=== PATIENT | female | born 1995 ===

== ENCOUNTER 2018-01-22 15:25 | Inpatient (IN) | payer BC, MEDICAID ==
[2018-01-22] MEDS ORDERED: Magnesium Sulfate 4 gm/100 ml 4 GM/100 ML BAG IVPB ONE (17:39)
[2018-01-22] MEDS ORDERED: Lactated Ringer's 1,000 ML IV SCH ×2 (17:45→18:45)
[2018-01-22] MEDS ORDERED: Lactated Ringer's 1,000 ML IV ONE (17:46)
[2018-01-22 18:03] LABS: BASO # 0.1 K/uL (0.0-0.2); EOS % 0.6 % (0.0-4.0); HEMOGLOBIN 11.9 g/dL (11.0-16.0); LYMPH % 26.2 % (20.0-40.0); MEAN CELL VOLUME 89.8 fL (81.0-99.0); MEAN CORPUSCULAR HGB CONC 33.4 g/dL (33.0-37.0); MONO # 0.8 K/uL (0.0-0.8); MONO % 10.8 % (0.0-10.0); NEUT # 4.7 K/uL (1.8-7.0); NEUT % 61.4 % (50.0-75.0); NRBC % 0.1 % (0.0-2.0); RBC 3.96 Mil/uL (3.80-5.20); RED CELL DISTRIBUTION WIDTH 14.8 % (11.5-14.5); WHITE BLOOD COUNT 7.6 K/uL (4.8-10.8)
[2018-01-22 18:13] LABS: URIC ACID 5.6 mg/dL (2.2-7.5)
[2018-01-22 18:14] LABS: SQUAMOUS EPITHIAL 18 /hpf (0-5); URINE BACTERIA FEW (<OCC); URINE BILIRUBIN NEGATIVE (NEGATIVE); URINE BLOOD NEGATIVE (NEGATIVE); URINE CLARITY Hazy (Clear); URINE COLOR Yellow (YELLOW); URINE GLUCOSE (UA) NORMAL (Normal); URINE LEUKOCYTE ESTERASE TRACE Leu/uL (Negative); URINE PROTEIN 2+ mg/dL (NEGATIVE); URINE UROBILINOGEN NORMAL mg/dL (0.2-1.0)
[2018-01-22] MEDS: Betamethasone Soluspan 30 mg/5mL Inj Susp IM SCH (23:59)
--- NOTE | 2018-01-23 01:03 | OBHP ---
Datetime: 01/22/2018 15:30 IP Adm Impression: , intrauterine ; No Active Labor; Intact Membranes IP Admit Plan: Admit to unit; Observation/Evaluation Admit Comment, IP Provider: 22 yo female G1 with an IUP at 36.2 weeks and sent from the clinic with Increase BP's Pt denies any RODRIGUEZ, BV or EP and admits to adequate FM. Also denies LOF or vaginal bleeding BP's on admission 151/95 and a subsequent highest 131/101 tracing reassuring and only ocassional contractions noted. PIH blood work was ordered/ Continuous monitoring for now, IV Hydration record reviewed. Pelvic Type - PN: Adequate Extremities - PN: Normal Abdomen - PN: Normal Back - PN: Normal Breast - PN: Not Done Lungs - PN: Normal Heart - PN: Normal Thyroid - PN: Normal Neurologic - PN: Normal HEENT - PN: Normal General - PN: Normal Presentation-Admit: Vertex FHR - Baseline A Provider: 130 Membranes, Provider: Intact Contraction Comments Provider: Ocassional Gestation - Est Wks by US: 36.2 Vital Signs Provider: Reviewed; Within Normal Limits IP Indication for Induction: Not Applicable IP Chief Complaint: Signs/Symptoms Gestational HTN NICHD Variability Prov Fetus A: Moderate 6-25bpm NICHD Accel Fetus A IP Provider: 15X15 FHR Category Provider Fetus A: Category I NICHD Decel Fetus A IP Provider: None Dilatation, Provider: 0 Effacement, Provider: 0 Station, Provider: high Genitourinary Exam: Normal DTRs - PN: Normal
--- NOTE | 2018-01-23 01:18 | OBADHP ---
Datetime: 01/22/2018 18:25 Admit Comment, IP Provider: [facility] labs WNL. Still without symptoms of Pre-eclampsia. However 2 + prote inuria BP's had improved since initial time and while at bedrest Will admit to 23 hours observation with NST's 2 x day, will perform 24 hours urine collection for total protein and Cr clearance. Close BP monitoring and may need to start on Labetolol po Will give Celestone x 2 doses to enhance lung maturity Pelvic Type - PN: Adequate Extremities - PN: Normal Abdomen - PN: Normal Back - PN: Normal Breast - PN: Not Done Lungs - PN: Normal Heart - PN: Normal Thyroid - PN: Normal Neurologic - PN: Normal HEENT - PN: Normal General - PN: Normal Membranes, Provider: Intact Gestation - Est Wks by US: 36.2 Vital Signs Provider: Reviewed IP Chief Complaint: Signs/Symptoms Gestational HTN FHR Category Provider Fetus A: Category I Genitourinary Exam: Normal DTRs - PN: Normal EGA AdmitDate IP: 35.2 IP Adm Impression: , intrauterine ; No Active Labor; Intact Membranes IP Admit Plan: Admit to unit Datetime: 01/22/2018 15:30 Presentation-Admit: Vertex FHR - Baseline A Provider: 130 Contraction Comments Provider: Ocassional NICHD Variability Prov Fetus A: Moderate 6-25bpm NICHD Accel Fetus A IP Provider: 15X15 NICHD Decel Fetus A IP Provider: None Dilatation, Provider: 0 Effacement, Provider: 0 Station, Provider: high
[2018-01-23 01:59] VITALS: BMI 38.7
[2018-01-23] MEDS ORDERED: Lactated Ringer's 1,000 ML IV SCH (07:45)
[2018-01-23 08:20] LABS: HEMOGLOBIN 12.1 g/dL (11.0-16.0); MEAN CORPUSCULAR HEMOGLOBIN 30.1 pg (27.0-31.0); MEAN CORPUSCULAR HGB CONC 33.8 g/dL (33.0-37.0); MEAN PLATELET VOLUME 10.6 fL (7.2-11.7); RBC 4.03 Mil/uL (3.80-5.20); RED CELL DISTRIBUTION WIDTH 14.7 % (11.5-14.5)
[2018-01-23 08:27] LABS: PROTHROMBIN TIME 10.9 SECONDS (9.7-12.2)
[2018-01-23 08:28] LABS: ALB/GLOB RATIO 1.1 (1.0-2.1); ALBUMIN 3.5 g/dL (3.5-5.0); ALT/SGPT 12 U/L (9-52); AST/SGOT 16 U/L (14-36); BILIRUBIN,DIRECT 0.4 mg/dL (0.0-0.4); BLOOD UREA NITROGEN 5 mg/dL (7-17); CALCIUM 9.4 mg/dl (8.6-10.4); GFR AFRICAN-AMERICAN > 60; GFR NON-AFRICAN AMERICAN > 60
[2018-01-23] MEDS ORDERED: Prenatal Multivit/Folic Acid/Iron Tab PO SCH (10:00)
[2018-01-23] MEDS ORDERED: Betamethasone Soluspan 30 mg/5mL Inj Susp IM SCH ×2 (10:00→20:37)
[2018-01-23] MEDS: Betamethasone Soluspan 30 mg/5mL Inj Susp IM SCH (23:51)
[2018-01-24 09:04] LABS: U CREAT 24HOUR URINE 1255.2 mg/24hr (800-2800); URINE CREATININE 104.6 mg/dL
--- NOTE | 2018-01-24 13:12 | US ---
PROCEDURE: OB Pelvic Ultrasound HISTORY: Bravo, P0, 35w 4d LMP: 05/20/2017 COMPARISON: None available. FINDINGS: UTERUS: Placenta: Posterior. Presentation: Cephalic. BPD: 8.7 cm compatible with estimated gestational age of 34 weeks, 2 days. HC: 31.1 cm compatible with estimated gestational age of 34 weeks, 5 days. HC: 30.6 cm compatible with estimated gestational age of 34 weeks, 4 days. FL: 6.9 cm compatible with estimated gestational age of 35 weeks, 2 days. Heart rate: 132 bpm. age (Ultrasound estimated): 35 weeks, 0 days Luli-gestational hemorrhage: None. Date of delivery (Ultrasound estimated) : 02/28/2018 CERVIX: Measures 3.5 cm. Long and closed. No cervical abnormality seen. FREE FLUID: None. OTHER FINDINGS: None. IMPRESSION: Single intrauterine gestation with average ultrasound age of 35 weeks, 0 days. heart rate 132 beats per minute. Cervix long and closed.
[2018-01-24 17:11] VITALS: BP 132/85; PULSE 82; RESP 18; TEMP 97.5; O2SAT 98
--- NOTE | 2018-01-24 23:27 | OBDCSUM ---
Datetime: 01/24/2018 12:47 Discharged to, Provider: Home [facility] Disch Instr Activity: Normal activity Disch Instr Diet: Restricted, specify Discharge Diet restrict Prov: Heart Healthy Discharge Instructions, Provider: Routine instructions given Discharge Time: 01/24/2018 12:55 Follow up in weeks, Provider: Sunday, January 28, 2018 Disch Referrals: None Discharge Diagnosis Prov Other: - undelivered Gestational hypertension Morbid obesity
--- NOTE | 2018-01-24 23:56 | OBPN ---
Datetime: 01/24/2018 11:00 IP Progress Plan: Discharge Contraction Comments Provider: none FHR - Baseline A Provider: 135 Gestation - Est Wks by US: 35w 4d IP Progress Note Comment: Patient was initially seen and evaluated approximately 1040 hours. Receive d in bed, LDR#1. (+) AFM; denied LOF, VB, Ctx; headaches, blurred vision epigastric or RUQ pain. BPs: 0745 hours, 146/87; 0835 hours, 128/75; 0938 hours, 121/62; 1035 hours, 138/74. Afebrile, Pul se 80-90 bpm Lungs: CTA bilaterally Cardiac: RRR, normal S1, S2 Abdomen: Obese. Gravid. Soft. Non tender in all quadrants - no epigastric or RUQ pain Extremities: no calf enderness; trace bilateral lower edema; no edema of hands or face DTRs: 2+ bilaterally , lower extremities Labs reviewed by me personally: 24 hour urine collection- total volume 1200 mL total protein 1,668 mg. U.A. 5.6. AST/ALT /. - Ob ultrasound: EGA 35 weeks, cephalic' posterior placenta. BPS 02/27 - conveyed via telephone comm unication with radiology staff. Assessment: 22 y.o. P0, 35w 4d admitted for evaluation and management of gestational HTN, now on labetalol 100 mg p.o. BID. BP under better control. No stigmata of pre-eclampsia. Patient also S/P co urse of betamethasone. Case D/W Dr. Tito Khan, [place]: he is in agreement for discharge home today and to follow up with weekly NST and BPP. In addition, recommends delivery at 37 weeks. This was commun icated to patient who expressed an understanding and agrees. Hide Cooking Operator also communicated this to emmett johnson's Ob provider, Dr. Will Lay, at [facility]. Patient is clinically stable. Plan: 1) Discharge home 2) continue labetalol 100 mg p.o. BID 3) Contninue vitamins 1 tab by mouth once a day 4) Make/keep appointment, 01/28/18 5) Anticipate NST and BPP weekly until delivery 6) Anticipate IOL for delivery at 37 weeks, per MFM 7) Reviewed S/S PTL and pre-eclampsia Vital Signs Provider: Reviewed; Within Normal Limits NICHD Accel Fetus A IP Provider: 15X15 FHR Category Provider Fetus A: Category I NICHD Variability Prov Fetus A: Moderate 6-25bpm Dilatation, Provider: deferred NICHD Decel Fetus A IP Provider: None Datetime: 01/22/2018 18:25 Membranes, Provider: Intact Datetime: 01/22/2018 15:30 Presentation-Admit: Vertex Effacement, Provider: 0 Station, Provider:
== END 2018-01-24 12:55 | disposition home or self-care (01) | DRG 775 ==
LOC: C.EROB 15:25 → C.4D 18:42
PROVIDERS: ADMIT Obstetrics & Gynecology; ATTEND Obstetrics & Gynecology
DX: O13.4 Gestational [pregnancy-induced] hypertension without significant proteinuria, complicating childbirth (principal); O99.214 Obesity complicating childbirth; E66.01 Morbid (severe) obesity due to excess calories; Z68.38 Body mass index [BMI] 38.0-38.9, adult; O14.94 Unspecified pre-eclampsia, complicating childbirth

== ENCOUNTER 2018-02-03 19:31 | Inpatient (IN) | payer BC, MEDICAID ==
[2018-02-03 20:05] VITALS: BMI 40.0
[2018-02-03] MEDS ORDERED: Lactated Ringer's 1,000 ML IV ONE (20:18)
[2018-02-03] MEDS ORDERED: Magnesium Sulfate 4 gm/100 ml 4 GM/100 ML BAG IVPB ONE ×2 (20:18→21:15)
[2018-02-03] MEDS: Lactated Ringer's 1,000 ML IV SCH (21:20)
[2018-02-03 21:31] LABS: BASO % 0.5 % (0.0-2.0); EOS # 0.1 K/uL (0.0-0.7); EOS % 1.6 % (0.0-4.0); LYMPH # 2.1 K/uL (1.0-4.3); LYMPH % 24.1 % (20.0-40.0); MEAN CELL VOLUME 88.9 fL (81.0-99.0); MEAN CORPUSCULAR HGB CONC 33.8 g/dL (33.0-37.0); MEAN PLATELET VOLUME 10.2 fL (7.2-11.7); MONO # 0.9 K/uL (0.0-0.8); MONO % 10.6 % (0.0-10.0); NEUT # 5.6 K/uL (1.8-7.0); NEUT % 63.2 % (50.0-75.0); NRBC % 0.1 % (0.0-2.0); RBC 3.67 Mil/uL (3.80-5.20); WHITE BLOOD COUNT 8.9 K/uL (4.8-10.8)
[2018-02-03 21:44] LABS: INR 0.9; PROTHROMBIN TIME 9.8 SECONDS (9.7-12.2)
[2018-02-03 21:47] LABS: SQUAMOUS EPITHIAL 16 /hpf (0-5); URINE BACTERIA MANY (<OCC); URINE BILIRUBIN NEGATIVE (NEGATIVE); URINE BLOOD NEGATIVE (NEGATIVE); URINE CLARITY Hazy (Clear); URINE COLOR Yellow (YELLOW); URINE GLUCOSE (UA) NORMAL (Normal); URINE LEUKOCYTE ESTERASE NEG Leu/uL (Negative); URINE PROTEIN 3+ mg/dL (NEGATIVE); URINE UROBILINOGEN NORMAL mg/dL (0.2-1.0)
[2018-02-03 22:01] LABS: URIC ACID 5.8 mg/dL (2.2-7.5)
[2018-02-03 22:02] LABS: ALT/SGPT 22 U/L (9-52); AST/SGOT 12 U/L (14-36); BILIRUBIN,DIRECT 0.5 mg/dL (0.0-0.4)
[2018-02-03 22:15] LABS: HEPATITIS B SURFACE AG Negative (NEGATIVE)
[2018-02-03 22:17] LABS: RAPID PLASMA REAGIN NONREACTIVE (NONREACTIVE)
[2018-02-03] MEDS: Magnesium Sulfate 20 gm 20 GM/500 ML BAG IV SCH (22:19)
[2018-02-03] MEDS ORDERED: Magnesium Sulfate 20 gm 20,000 MG/500 ML BAG IV ONE (22:20)
--- NOTE | 2018-02-03 22:37 | OBHP ---
Datetime: 02/03/2018 22:27 IP Adm Impression: Term, intrauterine IP Admit Plan: Admit to unit; Initiate labor induction protocol Admit Comment, IP Provider: @ 37 wks GA for IOL secondary to gestationla hypertension on labeta olol 100mg BID. pt states her blood pressure has been increasing over past few weeks. dnesi any heada johnnie, blurry vsion, ruq/epiasstric pain, ctx, lof, +FM. OB: P0 MACHINERY REPAIR MAINTENANCE SUPERVISOR: Denies hx of abnormal pap, fibroids, ovairn cyst sti PMH: Gestational hypertension PSH: denies FHX: DM, HTN SHX: negative eoth/tobacco/drugs MEDS: PNV, Labetaol 100mg BID NKDA A/P @ 37 wks GA for IOL for gestational hypertension r/o superimposed preeclmapisa admit to L+D npo, ivf vs q 15 min, parameters preelcmpatic and admission labs cervdil cont toco adn efm pt counlsed on possible magneesium sulfate if severe features of rpeeclmapisa, preecmpamps diagnos is, mamanget and risk dwiucssed with patient and agrees pain namangmet prn NEED TO OBTAIN FINAL MFM CONSULT AND RECRODS Pelvic Type - PN: Adequate Extremities - PN: Normal Abdomen - PN: Normal Back - PN: Normal Breast - PN: Not Done Lungs - PN: Normal Heart - PN: Normal Thyroid - PN: Not Done Neurologic - PN: Normal HEENT - PN: Normal General - PN: Normal Presentation-Admit: Vertex FHR - Baseline A Provider: 135 Membranes, Provider: Intact Contraction Comments Provider: irregular Comments, ACOG Physical Exam: GEN NAD AAO X 3 RESP: CTAB/l CVS: RRR< +S1/S2 ABD: soft, NT, ND, no rug/epigatstir tenderen V:E long/closed/poserioern EXT: DTR 2+ b/l Gestation - Est Wks by US: 37.0 EGA AdmitDate IP: 37.0 Vital Signs Provider: Reviewed Vital Signs Provider Details: BP 150-160/90s IP Chief Complaint: Signs/Symptoms Gestational HTN; Scheduled induction of labor NICHD Variability Prov Fetus A: Moderate 6-25bpm FHR Category Provider Fetus A: Category I NICHD Decel Fetus A IP Provider: None Dilatation, Provider: 0 Effacement, Provider: 0 Station, Provider: -3 Genitourinary Exam: Normal DTRs - PN: Normal Datetime: 01/24/2018 11:00 IP Hx Assessment: The History has been Reviewed and is Current NICHD Accel Fetus A IP Provider: 15X15 Datetime: 01/22/2018 18:25 IP Indication for Induction: Not Applicable
[2018-02-03] MEDS ORDERED: Nalbuphine HCL 10 mg/ml Ampule IVP PRN (22:46)
[2018-02-03] MEDS ORDERED: DiphenhydrAMINE 50 mg/ml Inj IVP ONE (23:01)
[2018-02-04] MEDS ORDERED: Magnesium Sulfate 20 gm 20,000 MG/500 ML BAG IV ONE (08:16)
[2018-02-04] MEDS ORDERED: Bupivacaine HCl/FentaNYL Cit 100 ML EPI ONE (08:50)
[2018-02-04] MEDS ORDERED: Penicillin G 5 Million Unit Vial IVPB ONE (09:28)
[2018-02-04] MEDS ORDERED: Penicillin G Potassium 5 MU in Dextrose 5% In Water 50 ML IV ONE (09:31)
[2018-02-04] MEDS: Magnesium Sulfate 20 gm 20 GM/500 ML BAG IV SCH (09:33)
[2018-02-04] MEDS: Lactated Ringer's 1,000 ML IV SCH (09:34)
[2018-02-04] MEDS ORDERED: Oxycodone/Acetaminophen 5/325 mg Tab PO PRN (10:04)
[2018-02-04 11:46] LABS: BASO # 0.1 K/uL (0.0-0.2); BASO % 0.3 % (0.0-2.0); EOS % 0.1 % (0.0-4.0); LYMPH # 1.6 K/uL (1.0-4.3); LYMPH % 8.3 % (20.0-40.0); MEAN CELL VOLUME 89.3 fL (81.0-99.0); MEAN CORPUSCULAR HEMOGLOBIN 29.9 pg (27.0-31.0); MEAN CORPUSCULAR HGB CONC 33.5 g/dL (33.0-37.0); MEAN PLATELET VOLUME 10.4 fL (7.2-11.7); MONO # 1.1 K/uL (0.0-0.8); MONO % 5.9 % (0.0-10.0); NEUT # 16.4 K/uL (1.8-7.0); NEUT % 85.4 % (50.0-75.0); PLATELET COUNT 214 K/uL (130-400); RBC 3.36 Mil/uL (3.80-5.20); RED CELL DISTRIBUTION WIDTH 15.5 % (11.5-14.5); WHITE BLOOD COUNT 19.2 K/uL (4.8-10.8)
[2018-02-04 12:03] LABS: ALB/GLOB RATIO 0.9 (1.0-2.1); ALBUMIN 2.6 g/dL (3.5-5.0); ALT/SGPT 22 U/L (9-52); AST/SGOT 16 U/L (14-36); BLOOD UREA NITROGEN 7 mg/dL (7-17); CALCIUM 7.7 mg/dl (8.6-10.4); GFR AFRICAN-AMERICAN > 60; GFR NON-AFRICAN AMERICAN > 60; URIC ACID 6.3 mg/dL (2.2-7.5)
--- NOTE | 2018-02-04 12:05 | OBDS ---
DELIVERY PERSONNEL Delivery Doctor: DR MEEHAN Auto Top Mechanic: Eri Portillo RN Anesthesiologist: DR MALONE MATERNAL INFORMATION Delivery Anesthesia: Epidural Medications in Delivery: pitocin 20 units Estimated Blood Loss (ml): 400 Placenta Cultured: Yes Maternal Complications: None; Other Other Maternal Complications: PIH/PreE and on Magnesium Sulfate for seizure prophylaxis Provider Comments: Pt had a precipitous vaginal delivery of a viable female with Apgars 9/9 and BW 6lbs, 11oz or 3025 grams. Placenta delivered complete and intact and sent to Pathology Cord blood and cord pH collected and sent. 3rd degree perineal laceration repaired adequately Mild uterine atony that required Pitocin infusion and one dose of Hemabate. Pt and both tolerated the procedure well and remained in L_D in S_S condition. LABOR SUMMARY EDC: 02/24/2018 00:00 No. Babies in Womb: 1 Attempted: No Labor Anesthesia: Epidural LABOR INFORMATION Reason for Induction: Gest. HTN/PreEclampsia/Eclampsia Onset of Labor: 02/04/2018 06:00 Complete Dilatation: 02/04/2018 09:25 Cervical Ripening Agents: Cervidil Group B Beta Strep: Done, Result Unknown Antibiotics # of Doses: 1 Antibiotics Time of Last Dose: 929 Steroids Given: None Reason Steroids Not Administered: Not Applicable MEMBRANES Membranes Rupture Method: Spontaneous Rupture of Membranes: 02/04/2018 07:42 Length of Rupture (hrs): 2.28 Amniotic Fluid Color: Clear Amniotic Fluid Amount: Moderate Amniotic Fluid Odor: Normal STAGES OF LABOR Stage 1 hrs: 3 Stage 1 min: 25 Stage 2 hrs: 0 Stage 2 min: 34 Stage 3 hrs: 0 Stage 3 min: 8 Total Time in Labor hrs: 4 Total Time in Labor min: 7 VAGINAL DELIVERY Episiotomy: None Laceration Extension: Third Degree Laceration Type: Perineal; Vaginal Laceration Repair: Yes Laceration Repair Note: 3rd degree lacertion repaired with 2-0 Vicryl suture and under sterile condi tions. Pt tolerated well Initial Vag Sponge Count: 10 Final Vag Sponge Count: 20 Initial Vag Sharps Count: 0 Final Vag Sharps Count: 2 Sponge Count Correct: Yes; Vaginal Sweep Performed Sharps Count Correct: Yes BABY A INFORMATION Infant Delivery Date/Time: 02/04/2018 09:59 Method of Delivery: Vaginal Born in Route : No : N/A SHOULDER DYSTOCIA BABY A Delivery Date/Time: 02/04/2018 09:59 PRESENTATION/POSITION BABY A Presentation: Cephalic Cephalic Presentation: Vertex PLACENTA INFORMATION BABY A Placenta Delivery Time : 02/04/2018 10:07 Placenta Method of Delivery: Spontaneous Placenta Status: Delivered SCORES BABY A Heart Rate 1 min: >100 bpm Resp Effort 1 min: Good Cry Reflex Irritability 1 min: Cough or Sneeze or Pulls Away Muscle Tone 1 min: Active Motion Color 1 min: Body [place], Extremities Blue SCORE 1 MIN: 9 Heart Rate 5 min: >100 bpm Resp Effort 5 min: Good Cry Reflex Irritability 5 min: Cough or Sneeze or Pulls Away Muscle Tone 5 min: Active Motion Color 5 min: Body [place], Extremities Blue SCORE 5 MIN: 9 INFANT INFORMATION BABY A Gestational Age at Delivery: 37.0 Gestational Status: Term Infant Outcome : Liveborn Condition : Stable Infant Sex: Female IDENTIFICATION/MEDS BABY A ID Band Number: [id number] ID Band Location: Right Leg; Right Arm Sensor Applied: Yes Sensor Number: [id number] Sensor Location : Cord Clamp Vitamin K Given : Aquamephyton 1 mg IM; Left Thigh Erythromycin Given: Given Both Eyes WEIGHT/LENGTH BABY A Birthweight (gms): 3025 Infant Weight (lb): 6 Weight (oz): 11 Infant Length Inches: 19.00 Length cms: 48.3 CORD INFORMATION BABY A No. Cord Vessels: 3 Nuchal Cord : N/A Cord Blood Taken: Yes Suction: None ASSESSMENT BABY A Complications: None Physical Findings at Delivery: Within Normal Limits Infant Respirations: Appears Normal Account Development Manager/ALS Called : No Care By: ruby Transferred To: Remains with Mother
[2018-02-04 12:12] LABS: BANDS 5 % (0-2); BASOPHIL 1 % (0-2); LYMPHOCYTE 9 % (20-40); MONOCYTE 4 % (0-10); NEUTROPHIL 81 % (50-75); PLATELET ESTIMATE NORMAL (NORMAL); TOTAL CELLS COUNTED 100
[2018-02-04 12:13] LABS: ANISOCYTOSIS SLIGHT
[2018-02-04 20:28] LABS: MEAN CELL VOLUME 90.2 fL (81.0-99.0); MEAN CORPUSCULAR HEMOGLOBIN 28.9 pg (27.0-31.0); RBC 2.86 Mil/uL (3.80-5.20); RED CELL DISTRIBUTION WIDTH 15.5 % (11.5-14.5); WHITE BLOOD COUNT 18.6 K/uL (4.8-10.8)
[2018-02-04 20:33] LABS: SQUAMOUS EPITHIAL 2 /hpf (0-5); URINE BILIRUBIN NEGATIVE (NEGATIVE); URINE BLOOD 3+ (NEGATIVE); URINE CLARITY Hazy (Clear); URINE COLOR Yellow (YELLOW); URINE GLUCOSE (UA) NORMAL (Normal); URINE HYALINE CAST >20 /lpf (0-2); URINE LEUKOCYTE ESTERASE TRACE Leu/uL (Negative); URINE PROTEIN 2+ mg/dL (NEGATIVE); URINE UROBILINOGEN NORMAL mg/dL (0.2-1.0)
[2018-02-04 20:35] LABS: HEMOGLOBIN 8.3 g/dL (11.0-16.0)
[2018-02-04 20:44] LABS: ALB/GLOB RATIO 0.9 (1.0-2.1); ALBUMIN 2.3 g/dL (3.5-5.0); ALT/SGPT 14 U/L (9-52); AST/SGOT 19 U/L (14-36); BLOOD UREA NITROGEN 7 mg/dL (7-17); GFR AFRICAN-AMERICAN > 60; GFR NON-AFRICAN AMERICAN > 60; URIC ACID 6.1 mg/dL (2.2-7.5)
[2018-02-05] MEDS: Multiple Vitamins Tab PO SCH (10:48)
[2018-02-05 15:06] LABS: BASO # 0.2 K/uL (0.0-0.2); EOS % 0.3 % (0.0-4.0); HEMOGLOBIN 7.9 g/dL (11.0-16.0); LYMPH # 2.4 K/uL (1.0-4.3); LYMPH % 16.1 % (20.0-40.0); MEAN CELL VOLUME 89.6 fL (81.0-99.0); MEAN CORPUSCULAR HEMOGLOBIN 30.1 pg (27.0-31.0); MEAN CORPUSCULAR HGB CONC 33.6 g/dL (33.0-37.0); MEAN PLATELET VOLUME 9.8 fL (7.2-11.7); MONO # 0.9 K/uL (0.0-0.8); MONO % 6.2 % (0.0-10.0); NEUT # 11.6 K/uL (1.8-7.0); NEUT % 76.4 % (50.0-75.0); RBC 2.61 Mil/uL (3.80-5.20); RED CELL DISTRIBUTION WIDTH 15.7 % (11.5-14.5); WHITE BLOOD COUNT 15.2 K/uL (4.8-10.8)
--- NOTE | 2018-02-05 15:24 | OBPPN ---
Datetime: 02/05/2018 15:16 PP Pain Prov: Within normal limits PP Nausea Prov: Denies PP Flatus Prov: Yes PP BM Prov: No PP Breasts Prov: Not Done PP Heart Prov: Normal PP Lungs Prov: Normal PP Abdomen/Uterus Prov: Normal PP Lochia Prov: Normal PP Vulva/Perineum Prov: Normal PP CVA Tenderness Prov: Normal PP Extremities Prov: Normal PP C/S Incision Prov: Normal PP Progress Prov: Abnormal PP Comments Phys Exam Prov: Incision clean, dry and intact PP Impression Prov: Normal progression; difficulties PP Plan Prov: Continue present management; consult PP Progress Note Prov: PPD#1 S/P after IOL for PIH/PreE SP Magnesium Sulfate for seizure prophylaxis Denies RODRIGUEZ, BV or EP and BP's WNL. Continue BP's Q 4 hrs during the day and then Q 8hrs C/O of Constipation and swollem/Painful Hemmorhoids PP H_H 8.3/25.8 but denies any symptoms Acute Anemia secondary to acute blood loss Started on Fe and Colace BID Encurage to increase po water intake and to ambulate Advise also to increase fiber in her diet Stable and Satisfactory condition and recovery Hope to discharge home in AM IP PP Procedures: None Vital Signs Provider PP: Reviewed; Within Normal Limits
--- NOTE | 2018-02-05 15:27 | OBDS ---
DELIVERY PERSONNEL Delivery Doctor: DR MEEHAN Convex Grinder Operator: Eri Portillo RN Anesthesiologist: DR MALONE MATERNAL INFORMATION Delivery Anesthesia: Epidural Medications in Delivery: pitocin 20 units Estimated Blood Loss (ml): 400 Placenta Cultured: Yes Maternal Complications: None; Other Other Maternal Complications: PIH/PreE and on Magnesium Sulfate for seizure prophylaxis Provider Comments: Pt had a precipitous vaginal delivery of a viable female with Apgars 9/9 and BW 6lbs, 11oz or 3025 grams. Placenta delivered complete and intact and sent to Pathology Cord blood and cord pH collected and sent. 3rd degree perineal laceration repaired adequately Mild uterine atony that required Pitocin infusion and one dose of Hemabate. Pt and both tolerated the procedure well and remained in L_D in S_S condition. Will continue Magnesium Sulfate for seizure prophylaxix x 12-24 more hours LABOR SUMMARY EDC: 02/24/2018 00:00 No. Babies in Womb: 1 Attempted: No Labor Anesthesia: Epidural LABOR INFORMATION Reason for Induction: Gest. HTN/PreEclampsia/Eclampsia Onset of Labor: 02/04/2018 06:00 Complete Dilatation: 02/04/2018 09:25 Cervical Ripening Agents: Cervidil Cervical Ripening Agents: Cervidil (Annotations: cervidil inserted intravaginal by Dr. Sauer) Group B Beta Strep: Done, Result Unknown Antibiotics # of Doses: 1 Antibiotics Time of Last Dose: 929 Steroids Given: None Reason Steroids Not Administered: Not Applicable MEMBRANES Membranes Rupture Method: Spontaneous Rupture of Membranes: 02/04/2018 07:42 Length of Rupture (hrs): 2.28 Amniotic Fluid Color: Clear Amniotic Fluid Amount: Moderate Amniotic Fluid Odor: Normal STAGES OF LABOR Stage 1 hrs: 3 Stage 1 min: 25 Stage 2 hrs: 0 Stage 2 min: 34 Stage 3 hrs: 0 Stage 3 min: 8 Total Time in Labor hrs: 4 Total Time in Labor min: 7 VAGINAL DELIVERY Episiotomy: None Laceration Extension: Third Degree Laceration Type: Perineal; Vaginal Laceration Repair: Yes Laceration Repair Note: 3rd degree lacertion repaired with 2-0 Vicryl suture and under sterile condi tions. Pt tolerated well Initial Vag Sponge Count: 10 Final Vag Sponge Count: 20 Initial Vag Sharps Count: 0 Final Vag Sharps Count: 2 Sponge Count Correct: Yes; Vaginal Sweep Performed Sharps Count Correct: Yes BABY A INFORMATION Delivery Date/Time: 02/04/2018 09:59 Method of Delivery: Vaginal Born in Route : No : N/A SHOULDER DYSTOCIA BABY A Delivery Date/Time: 02/04/2018 09:59 PRESENTATION/POSITION BABY A Presentation: Cephalic Cephalic Presentation: Vertex PLACENTA INFORMATION BABY A Placenta Delivery Time : 02/04/2018 10:07 Placenta Method of Delivery: Spontaneous Placenta Status: Delivered SCORES BABY A Heart Rate 1 min: >100 bpm Resp Effort 1 min: Good Cry Reflex Irritability 1 min: Cough or Sneeze or Pulls Away Muscle Tone 1 min: Active Motion Color 1 min: Body [place], Extremities Blue SCORE 1 MIN: 9 Heart Rate 5 min: >100 bpm Resp Effort 5 min: Good Cry Reflex Irritability 5 min: Cough or Sneeze or Pulls Away Muscle Tone 5 min: Active Motion Color 5 min: Body [place], Extremities Blue SCORE 5 MIN: 9 INFORMATION BABY A Gestational Age at Delivery: 37.0 Gestational Status: Term Outcome : Liveborn Condition : Stable Sex: Female IDENTIFICATION/MEDS BABY A ID Band Number: [id number] ID Band Location: Right Leg; Right Arm Sensor Applied: Yes Sensor Number: [id number] Sensor Location : Cord Clamp Vitamin K Given : Aquamephyton 1 mg IM; Left Thigh Erythromycin Given: Given Both Eyes WEIGHT/LENGTH BABY A Infant Birthweight (gms): 3025 Weight (lb): 6 Weight (oz): 11 Length Inches: 19.00 Length cms: 48.3 CORD INFORMATION BABY A No. Cord Vessels: 3 Nuchal Cord : N/A Cord pH Baby Arterial: 7.28 Cord Blood Taken: Yes Suction: None ASSESSMENT BABY A Complications: None Infant Complications Other: Precipitous vaginal delivery Physical Findings at Delivery: Within Normal Limits Respirations: Appears Normal Telecom Engineer/ALS Called : No Infant Care By: ruby Transferred To: Remains with Mother
[2018-02-05] MEDS: Hydrocortisone 2.5% Rectal Cream(30 gm) PR SCH (17:54)
[2018-02-05] MEDS: Benzocaine/Menthol 20%-0.5% Topical Spray (60 ml) TOP PRN (17:59)
[2018-02-06] MEDS: Benzocaine/Menthol 20%-0.5% Topical Spray (60 ml) TOP PRN (09:16)
[2018-02-06] MEDS: Hydrocortisone 2.5% Rectal Cream(30 gm) PR SCH (09:16)
[2018-02-06] MEDS: Multiple Vitamins Tab PO SCH (09:18)
--- NOTE | 2018-02-06 10:22 | OBPPN ---
Datetime: 02/06/2018 10:18 PP Pain Prov: Within normal limits PP Nausea Prov: Denies PP Flatus Prov: Yes PP BM Prov: Yes PP Comments Phys Exam Prov: fudus below umblicus ]incision clean and dy PP Impression Prov: Normal progression PP Plan Prov: Continue present management PP Progress Note Prov: pt was seen at bed side, pain under control,no n/v, tolerating deit, voiding, min ocha, flatus + pod#2 cont post op care cont pain magemen encourage ambulation Vital Signs Provider PP: Reviewed; Within Normal Limits
--- NOTE | 2018-02-06 10:26 | OBDCSUM ---
Datetime: 02/06/2018 10:22 Discharged to, Provider: Home Follow up at, Provider: 6we Discharge Diagnosis, Provider: Term Delivered Follow up in weeks, Provider: clinic Disch Activity Restrictions: Minimize walking; Minimize stair-climbing; No sexual activity; Nothing in vagina - [place], tampons, douche Datetime: 01/24/2018 12:47 Discharge Diagnosis, Provider: Term Delivered
[2018-02-06 20:34] VITALS: BP 123/81; PULSE 82; RESP 20; TEMP 97.2; O2SAT 97
== END 2018-02-06 13:00 | disposition home or self-care (01) | DRG 775 ==
LOC: C.EROB 19:31 → C.4D 20:19 → C.4M 02-05 08:10
PROVIDERS: ADMIT Obstetrics & Gynecology; ATTEND Obstetrics & Gynecology
PROC: 10E0XZZ Delivery of Products of Conception, External Approach (ICD-10-PCS; principal; 2018-02-04)
PROC: 0DQR0ZZ Repair Anal Sphincter, Open Approach (ICD-10-PCS; 2018-02-04)
PROC: 3E0P7VZ Introduction of Hormone into Female Reproductive, Via Natural or Artificial Opening (ICD-10-PCS; 2018-02-04)
DX: O13.4 Gestational [pregnancy-induced] hypertension without significant proteinuria, complicating childbirth (principal); O14.94 Unspecified pre-eclampsia, complicating childbirth; O75.89 Other specified complications of labor and delivery; O70.20 Third degree perineal laceration during delivery, unspecified; Z3A.37 37 weeks gestation of pregnancy; Z37.0 Single live birth

== ENCOUNTER 2018-11-05 16:20 | Emergency (ER) | payer BC, MEDICAID ==
[2018-11-05 16:20] VITALS: BMI 40.0
--- NOTE | 2018-11-05 16:57 | C.PDOC ---
History Of Present Illness 23 y/o female presents to the ER for evaluation of allergic reaction to Ibuprofen.Patient states that she has known allergy of Ibuprofen. Patient reports that she took medication for menstrual cramps today but she did not know that Ibuprofen was one of the ingredients. She notes that she had itchy eyes and she developed periorbital edema and angioedema of the lips. Denies having fever,chills, throat swelling, CP,SOB,nausea, and vomiting. Time Seen by Provider: 11/05/18 16:34 Chief Complaint (Nursing): Allergic Reaction Past Medical History Reviewed: Historical Data, Nursing Documentation, Vital Signs Vital Signs: Last Vital Signs Temp 98.7 F 11/05/18 16:24 Pulse 78 11/05/18 16:24 Resp 18 11/05/18 16:24 BP 133/84 11/05/18 16:24 Pulse Ox 99 11/05/18 16:24 - Medical History PMH: Hypothyroidism Denies: Depression, Diabetes, HTN Surgical History: No Surg Hx - [facility] Procedures (02/03/18) DELIVERY OF PRODUCTS OF CONCEPTION, EXTERNAL APPROACH (02/03/18) REPAIR ANAL SPHINCTER, OPEN APPROACH (02/03/18) Family History: States: No Known Family Hx - Social History Hx Alcohol Use: No Hx Substance Use: No - Immunization History Hx Tetanus Toxoid Vaccination: No Hx Influenza Vaccination: No Hx Pneumococcal Vaccination: No Review Of Systems Constitutional: Negative for: Fever, Chills ENT: Negative for: Throat Pain, Throat Swelling Cardiovascular: Negative for: Chest Pain Respiratory: Negative for: Shortness of Breath Gastrointestinal: Negative for: Nausea, Vomiting Skin: Positive for: Rash Physical Exam - Physical Exam Appears: Non-toxic, No Acute Distress Skin: Warm, Dry, No Rash Head: Normacephalic Eye(s): bilateral: PERRL, EOMI, Other (periorbital edema, conjunctival injection bilaterally) Nose: Normal Oral Mucosa: Moist Throat: Normal, No Erythema, No Exudate, Other (airway patent) Neck: Supple Chest: Symmetrical Cardiovascular: Rhythm Regular Respiratory: Normal Breath Sounds, No Rales, No Rhonchi, No Stridor, No Wheezing Neurological/Psych: Oriented x3, Normal Speech ED Course And Treatment O2 Sat by Pulse Oximetry: 99 (RA) Pulse Ox Interpretation: Normal Medical Decision Making Medical Decision Making: Plan: --POC --Pepcid PO --Benadryl PO --Prednisone PO on reassessment, patient notes significant improvement of periorbital edema and angioedema of lips she is stable for discharge Disposition Counseled Patient/Family Regarding: Diagnosis, Need For Followup, Rx Given - Disposition Referrals: Will Lay MD [Staff Provider] - Disposition: HOME/ ROUTINE Disposition Time: 18:03 Condition: IMPROVED Additional Instructions: Continue prescribed meds as instructed avoid Ibuprofen ice packs to eyes follow up with PMD in 1-2 days Return to ED if symptoms worsen Prescriptions: DiphenhydrAMINE [Benadryl] 25 mg PO BID #14 cap Famotidine [Pepcid] 20 mg PO DAILY #14 tab predniSONE [predniSONE Tab] 60 mg PO DAILY #15 tab Instructions: Adverse Drug Reactions, Adult (DC) Forms: [email or web address] ([place]) - Clinical Impression Clinical Impression: Allergic reaction to drug, Angioedema - PA / HUMAN RESOURCE STATISTICIAN / Resident Statement MD/DO has reviewed & agrees with the documentation as recorded. - Scribe Statement The provider has reviewed the documentation as recorded by the Dru Saenz Provider Attestation All medical record entries made by the Dru were at my direction and personally dictated by me. I have reviewed the chart and agree that the record accurately reflects my personal performance of the history, physical exam, medical decision making, and the department course for this patient. I have also personally directed, reviewed, and agree with the discharge instructions and disposition.
[2018-11-05 18:11] VITALS: BP 129/81; PULSE 55; RESP 16; TEMP 98.5
[2018-11-05 23:37] VITALS: O2SAT 99
== END 2018-11-05 18:11 | disposition home or self-care (01) ==
LOC: C.ER 16:20
DX: T78.3XXA Angioneurotic edema, initial encounter (principal); T39.315A Adverse effect of propionic acid derivatives, initial encounter